=== PATIENT | male | born 1985 | race Caucasian/White ===

== ENCOUNTER 2016-04-08 02:10 | Emergency (ER) | payer BC, OTHER ==
[~2016-04-08] VITALS: Ht 170.2 cm; Wt 89.7 kg
[2016-04-08 02:15] VITALS: TEMP 36.4; Ht 170.2 cm; Wt 89.7 kg
[2016-04-08] MEDS ORDERED: ALLO300T2 PO (02:41)
[2016-04-08] MEDS ORDERED: ONDANSETRON INJ 2 MG/ML 2 ML VIAL IV STA (02:41)
[2016-04-08] MEDS ORDERED: MULT-506 PO (02:42)
[2016-04-08] MEDS ORDERED: SODIUM CHLORIDE 0.9% 1000ML 1,000 ML IV ONE (02:45)
[2016-04-08 03:09] LABS: BASO % 0.3 %; BASO ABS # 0.02 K/uL (0-0.2); COMPLETE YES; EOS % 1.3 %; HEMATOCRIT 43.3 % (42-52); IG% 0.1 %; LYMPH % 36.3 %; LYMPH ABS # 2.87 K/uL (1.2-3.4); MEAN CELL VOLUME 84.9 fL (80-100); MEAN CORPUSCULAR HEMOGLOBIN 30.6 pg (25-34); MEAN PLATELET VOLUME 9.7 fL (7.4-10.4); MONO % 9.9 %; NEUT % 52.1 %; PLATELET COUNT 124 K/uL (130-400)
[2016-04-08 03:28] LABS: BUN/CREATININE RATIO 16.7 (10-20); CALCIUM 8.8 mg/dl (8.5-10.1); CREATININE 1.1 mg/dl (0.60-1.40); POTASSIUM 3.6 mmol/L (3.5-5.1)
[2016-04-08 03:31] LABS: ALB/GLOB RATIO 1.3 (0.9-2)
[2016-04-08 04:32] LABS: URINE APPEARANCE CLEAR (CLEAR); URINE BILIRUBIN NEG (NEG); URINE COLOR YELLOW; URINE NITRITE NEG (NEG); URINE PH 5.5 (4.5-7.5); URINE SPECIFIC GRAVITY 1.019 (1.000-1.030); UROBILINOGEN NEG (NEG); ZZUR CULT IF INDIC CLEAN CATCH NO
[2016-04-08 04:37] LABS: MANUAL MICROSCOPIC REQUIRED? NO; REVIEW REQ? NO
[2016-04-08] MEDS ORDERED: ONDANSETRON HOME PACK 4MG OD TAB PO ONE (05:00)
[2016-04-08 05:08] VITALS: BP 130/73; PULSE 62; O2SAT 98
--- NOTE | 2016-04-08 07:32 | DIAGNOSTIC IMAGING REPORT ---
ABDOMEN 2VIEW W/PA CHEST RTN CLINICAL HISTORY: Nausea and abd cramping COMPARISON STUDY: No previous studies for comparison. FINDINGS: The erect chest reveals no free air. There is no focal pulmonary consolidation. Erect and supine views the abdomen reveal moderate stool within the right colon. There are no abnormally dilated loops of large or small bowel. There are no transition zones indicate bowel obstruction. There is a nonspecific left pelvic basin calcification, likely representing a phlebolith. IMPRESSION: No evidence of bowel obstruction. No evidence of free air. Electronically signed by: Tomi Dominguez M.D. 04/08/2016 7:30 AM
--- NOTE | 2016-04-09 05:51 | EMERGENCY ROOM VISIT NOTE ---
History First contact with patient: 02:28 Chief Complaint: ABDOMINAL PAIN Stated Complaint: BAD ABDOMINAL PAIN/CRAMPING Nursing Triage Summary: Patient reports abdominal cramping that began around 1900 and has progressively worsened through the night. Patient reports that cramping is present in the umbilical area. Reports that s/s improved slightly after having a BM. Also reports associated nausea. Denies v/d or fever. History of Present Illness The patient is a 30 year old male who presents to the Emergency Room with complaints of nausea symptoms that have been ongoing for the past 5 or 6 hours. The patient ate salmon for dinner last night, and has had developing symptoms. He researched his symptoms online, and is concerned that he may have a problem with his gallbladder. The patient has not taken anything over-the- counter for his symptoms. He has not had fever, vomiting, or diarrhea. He does not have distinct abdominal pain, but does complain of some periumbilical cramping. He has not been on antibiotics recently. He has not been ill recently. He considers himself otherwise usually healthy. Review of Systems More than 10 systems were reviewed and otherwise negative with the exception of history of present illness. Past Medical/Surgical History No chronic medical disease Family History No pertinent family history Social History Smoking Status: Never Smoker Housing Status: lives with family Current/Historical Medications Scheduled Allopurinol (Zyloprim), 300 MG PO DAILY Multivitamin (Multivitamin), 1 TAB PO DAILY Allergies Coded Allergies: No Known Allergies (Unverified , 04/08/16) Physical Exam Vital Signs Date Time Temp Pulse Resp B/P Pulse Ox O2 Delivery O2 Flow Rate FiO2 04/08/16 05:08 62 20 130/73 98 04/08/16 04:07 52 20 117/78 100 Room Air 04/08/16 02:15 36.4 68 18 127/88 100 Room Air Pain Rating (0-10): 2.0 Physical Exam VITALS: Vitals are noted on the nurse's note and reviewed by myself. Vital signs stable. GENERAL: Well-developed, well-nourished, white male, who is in no acute distress and resting comfortably. Patient is cooperative with the examination. HEAD: Normocephalic atraumatic. MOUTH: Mucous membranes moist. Tonsils are not enlarged. Pharynx without erythema, blood, or exudate. Uvula midline. Airway patent. NECK: Supple without nuchal rigidity. No lymphadenopathy. No thyromegaly. Cervical spine is nontender. HEART: Regular rate and rhythm without murmurs gallops or rubs. LUNGS: Clear to auscultation bilaterally without wheezes, rales or rhonchi. No retractions or accessory muscle use. ABDOMEN: Positive normal bowel sounds x 4. Soft, nontender, without masses or organomegaly. No guarding or rebound tenderness. Medical Decision & Procedures ER Provider Diagnostic Interpretation: ABDOMEN 2VIEW W/PA CHEST RTN CLINICAL HISTORY: Nausea and abd cramping COMPARISON STUDY: No previous studies for comparison. FINDINGS: The erect chest reveals no free air. There is no focal pulmonary consolidation. Erect and supine views the abdomen reveal moderate stool within the right colon. There are no abnormally dilated loops of large or small bowel. There are no transition zones indicate bowel obstruction. There is a nonspecific left pelvic basin calcification, likely representing a phlebolith. IMPRESSION: No evidence of bowel obstruction. No evidence of free air. Laboratory Results 04/08/16 02:25 Red Blood Count 5.10, Mean Corpuscular Volume 84.9, Mean Corpuscular Hemoglobin 30.6, Mean Corpuscular Hemoglobin Concent 36.0, Mean Platelet Volume 9.7, Neutrophils (%) (Auto) 52.1, Lymphocytes (%) (Auto) 36.3, Monocytes (%) (Auto) 9.9, Eosinophils (%) (Auto) 1.3, Basophils (%) (Auto) 0.3, Neutrophils # (Auto) 4.12, Lymphocytes # (Auto) 2.87, Monocytes # (Auto) 0.78, Eosinophils # (Auto) 0.10, Basophils # (Auto) 0.02 04/08/16 02:25 Test 04/08/16 02:25 04/08/16 04:15 White Blood Count 7.90 K/uL (4.8-10.8) Red Blood Count 5.10 M/uL (4.7-6.1) Hemoglobin 15.6 g/dL (14.0-18.0) Hematocrit 43.3 % (42-52) Mean Corpuscular Volume 84.9 fL (80-100) Mean Corpuscular Hemoglobin 30.6 pg (25-34) Mean Corpuscular Hemoglobin Concent 36.0 g/dl (32-36) Platelet Count 124 K/uL (130-400) Mean Platelet Volume 9.7 fL (7.4-10.4) Neutrophils (%) (Auto) 52.1 % Lymphocytes (%) (Auto) 36.3 % Monocytes (%) (Auto) 9.9 % Eosinophils (%) (Auto) 1.3 % Basophils (%) (Auto) 0.3 % Neutrophils # (Auto) 4.12 K/uL (1.4-6.5) Lymphocytes # (Auto) 2.87 K/uL (1.2-3.4) Monocytes # (Auto) 0.78 K/uL (0.11-0.59) Eosinophils # (Auto) 0.10 K/uL (0-0.5) Basophils # (Auto) 0.02 K/uL (0-0.2) RDW Standard Deviation 38.7 fL (36.4-46.3) RDW Coefficient of Variation 12.5 % (11.5-14.5) Immature Granulocyte % (Auto) 0.1 % Immature Granulocyte # (Auto) 0.01 K/uL (0.00-0.02) Anion Gap 10.0 mmol/L (3-11) Est Creatinine Clear Calc Drug Dose 103.0 ml/min Estimated GFR () 102.4 Estimated GFR (Non- 88.4 BUN/Creatinine Ratio 16.7 (10-20) Calcium Level 8.8 mg/dl (8.5-10.1) Total Bilirubin 0.5 mg/dl (0.2-1) Aspartate Amino Transf (AST/SGOT) 11 U/L (15-37) Alanine Aminotransferase (ALT/SGPT) 33 U/L (12-78) Alkaline Phosphatase 88 U/L (45-117) Total Protein 7.9 gm/dl (6.4-8.2) Albumin 4.4 gm/dl (3.4-5.0) Globulin 3.5 gm/dl (2.5-4.0) Albumin/Globulin Ratio 1.3 (0.9-2) Lipase 300 U/L (73-393) Urine Color YELLOW Urine Appearance CLEAR (CLEAR) Urine pH 5.5 (4.5-7.5) Urine Specific Leslie 1.019 (1.000-1.030) Urine Protein NEG (NEG) Urine Glucose (UA) NEG (NEG) Urine Ketones NEG (NEG) Urine Occult Blood NEG (NEG) Urine Nitrite NEG (NEG) Urine Bilirubin NEG (NEG) Urine Urobilinogen NEG (NEG) Urine Leukocyte Esterase NEG (NEG) Medications Administered Medications (Trade) Dose Ordered Sig/Nicho Route Start Time Stop Time Status Last Admin Dose Admin Sodium Chloride (Nss 1000ml) 1,000 ml @ 999 mls/hr Q1H1M ONCE IV 04/08/16 02:45 04/08/16 03:45 DC 04/08/16 02:48 999 MLS/HR Ondansetron HCl (Zofran Inj) 4 mg NOW STAT IV 04/08/16 02:41 04/08/16 02:43 DC 04/08/16 02:48 4 MG Ondansetron HCl (ZOFRAN ODT 4MG Home Pack) 1 homepack UD ONCE PO 04/08/16 05:00 04/08/16 05:01 DC 04/08/16 05:04 1 HOMEPACK ED Course Physical exam and history were performed. Nursing notes and EMR were reviewed. Patient appears to have nausea and abdominal cramping for the past several hours. The patient does not appear toxic on examination. He does not have focal tenderness, and does not present with peritoneal symptoms. IV access was established and labs were obtained. The patient was hydrated medicated as above. Plain films performed. The patient's blood work is as above and was reviewed. He does not have a significantly elevated white blood cell count, anemia, bandemia, or gross electrolyte imbalance. Lipase and transaminases are nondiagnostic. The patient 's plain films do not show evidence of obstructive process or free air. Overall the patient had significant improvement of his discomfort after hydration and Zofran. I discussed options of care with the patient, who felt stable for discharge home. He did not have worsening findings on serial abdominal examination, and this seems reasonable. I suspect the patient's discomfort is secondary to his dinner, or possibly an early viral infection. I did discuss this with the patient. I will give him a short course of Zofran for home use. I recommend that he pulls follow-up with his primary care physician for further management. The patient was pleased with this plan and rated his discomfort a 2/10 at the time of departure. The chart was completed utilizing [employer] Voice Recognition Software. Grammatical errors, random word insertions, pronoun errors, and incomplete sentences are an occasional consequence of this system due to software limitations, ambient noise, and hardware issues. Any formal questions or concerns about the content, text, or information contained within the body of this dictation should be directly addressed to the provider for clarification. . Medical Decision Differential diagnosis: Etiologies such as appendicitis, diverticulitis, PUD, biliary pathology, UTI, pancreatitis, obstruction, mesenteric ischemia, aortic pathology, infections, inflammatory bowel disease, renal colic, as well as others were entertained. Impression Primary Impression: Nausea Departure Information Dispostion Home / Self-Care Condition GOOD Forms Call Back Authorization, HOME CARE DOCUMENTATION FORM, [facility]ly [facility], [facility], IMPORTANT VISIT INFORMATION Patient Instructions A Signature Page Additional Instructions You were seen and evaluated today on an emergency basis only. This is not a substitute for, or an effort to provide, complete comprehensive medical care. It is not possible to recognize and treat all injuries or illnesses in a single emergency department visit. For this reason it is recommended that you followup with your primary care physician this week for ongoing care and evaluation. Zofran 1 tablet every 6 hrs as needed for nausea. You are welcome to return to the emergency department anytime with new, worsening, or concerning symptoms.
== END 2016-04-08 05:12 | disposition home or self-care (01) ==
LOC: C.EDB 02:11
DX: R11.0 Nausea (principal); Z79.899 Other long term (current) drug therapy